=== PATIENT | female | born 1975 | race Two or more races ===

== ENCOUNTER 2024-10-25 13:46 | Emergency (ER) | payer OTHER ==
[~2024-10-25] VITALS: Ht 149.9 cm; Wt 54.4 kg
[2024-10-25] MEDS ORDERED: RINGERS SOLUTION,LACTATED 1,000 ML IV STA (15:29)
[2024-10-25 16:01] LABS: BASO % 0.6 % (0.1-1.2); EOS # 0.33 (0.04-0.54); HEMATOCRIT 36.1 % (34.1-44.9); HEMOGLOBIN 12.2 g/dL (11.2-15.7); LYMPH # 2.04 (1.18-3.74); LYMPH % 24.7 % (19.3-53.1); MEAN CORPUSCULAR HEMOGLOBIN 30.3 pg (25.6-32.2); MONO # 0.32 (0.24-0.82); MONO % 3.9 % (4.7-12.5); NEUT # 5.48 (1.56-6.13); NEUT % 66.3 % (34.0-71.1); PLATELET COUNT 310 K/uL (163-369); RED BLOOD COUNT 4.03 M/uL (3.93-5.22); RED CELL DISTRIBUTION WIDTH 13.2 % (11.6-14.4)
[2024-10-25 16:38] LABS: URINE APPEARANCE Clear; URINE BILIRRUBIN Negative (NEGATIVE); URINE BLOOD Large; URINE COLOR Yellow; URINE GLUCOSE Negative (NEGATIVE); URINE KETONE Negative (NEGATIVE); URINE LEUKOCYTE Trace; URINE NITRATE Negative; URINE PROTEIN Trace (NEGATIVE); URINE UROBILINOGEN 0.2 E.U./dl
[2024-10-25 16:39] LABS: CALCIUM 8.5 mg/dL (8.5-10.1); CREATININE SERUM 0.57 mg/dL (0.55-1.02); GFR 113.21; POTASSIUM 5.31 mEq/L (3.5-5.1)
[2024-10-25 16:39] LABS: URINE BACTERIA 293.7 uL (0.0-1933); URINE WBC 10.1 uL (0.0-23.2)
[2024-10-25] MEDS ORDERED: CEFUROXIME500 MG PO (18:26)
[2024-10-25] MEDS ORDERED: PEPCID AC20 MG PO (18:26)
[2024-10-25] MEDS ORDERED: FEOSOL325 MG PO (18:26)
== END 2024-10-25 18:40 | disposition home or self-care (01) ==
LOC: ER 13:46
PROVIDERS: General Practice
DX: N93.9 Abnormal uterine and vaginal bleeding, unspecified (principal); I10 Essential (primary) hypertension; Z88.2 Allergy status to sulfonamides